=== PATIENT | male | born 1985 | race Caucasian/White ===

== ENCOUNTER 2016-09-25 10:59 | Inpatient (IN) | payer OTHER ==
[~2016-09-25] VITALS: Ht 165.1 cm; Wt 73.7 kg
[2016-09-25] MEDS ORDERED: RAW PROBIOTIC PO (11:29)
[2016-09-25] MEDS ORDERED: ADRENAL SUPPORT PO (11:29)
[2016-09-25] MEDS ORDERED: [UNRECOGNIZED DRUG - OTHER] PO (11:29)
[2016-09-25] MEDS ORDERED: CALC-214 PO (11:29)
[2016-09-25] MEDS ORDERED: SUPER ENZYMES PO (11:29)
[2016-09-25 11:43] LABS: URINE APPEARANCE CLEAR (CLEAR); URINE BILIRUBIN NEG (NEG); URINE COLOR YELLOW; URINE NITRITE NEG (NEG); UROBILINOGEN NEG (NEG); ZZUR CULT IF INDIC CLEAN CATCH NO
[2016-09-25 11:52] LABS: MANUAL MICROSCOPIC REQUIRED? NO; REVIEW REQ? NO
[2016-09-25 12:15] LABS: BENZODIAZEPINE, URINE NEG (NEG); COCAINE,URINE NEG (NEG); PHENCYCLIDINE, URINE NEG (NEG)
[2016-09-25 12:26] LABS: HEMATOCRIT 50.5 % (42-52); MEAN CELL VOLUME 84.7 fL (80-100); MEAN CORPUSCULAR HEMOGLOBIN 31.4 pg (25-34); MEAN PLATELET VOLUME 9.7 fL (7.4-10.4); PLATELET COUNT 211 K/uL (130-400); RED BLOOD COUNT 5.96 M/uL (4.7-6.1); WHITE BLOOD COUNT 7.66 K/uL (4.8-10.8)
[2016-09-25 12:35] LABS: BUN/CREATININE RATIO 14.4 (10-20); CREATININE 0.87 mg/dl (0.60-1.40)
[2016-09-25 12:46] LABS: ALB/GLOB RATIO 1.3 (0.9-2); THYROID STIMULATING HORMONE 1.68 uIu/ml (0.300-4.500)
[2016-09-25 12:47] LABS: ACETAMINOPHEN < 2 ug/ml (10-30)
[2016-09-25 12:53] LABS: COMPLETE YES; GIANT PLATELETS 1+; LYMPH ABS # 0.77 K/uL (1.2-3.4); VARIANT LYM ABS # 0.92 K/uL
[2016-09-25] MEDS ORDERED: HALOPERIDOL 5 MG TAB PO PRN (20:15)
[2016-09-25] MEDS ORDERED: ALUMINUM/MAGNESIUM SUSP 30 ML UDC PO PRN (20:15)
[2016-09-25] MEDS ORDERED: MAGNESIUM HYDROXIDE SUSP 30 ML UDC PO PRN (20:15)
[2016-09-25] MEDS ORDERED: hydrOXYzine HCL 25 MG TAB PO PRN ×2 (20:15)
[2016-09-25] MEDS ORDERED: ACETAMINOPHEN 325 MG TAB PO PRN (20:15)
[2016-09-25] MEDS ORDERED: SODIUM CHLORIDE 0.65% NA SOLN 45 ML (OCEAN) PRN (20:15)
[2016-09-25] MEDS ORDERED: BISMUTH SUBSALICYLATE PER ML OMNICELL CHARGE PO PRN (20:15)
--- NOTE | 2016-09-25 20:45 | EMERGENCY ROOM VISIT NOTE ---
ED Visit Note First contact with patient: 20:44 I received this patient at change of shift signout from Dr. Schwartz. Please see his note for complete history and physical. The patient was medically cleared earlier. There was a bed search underway. We are unable to ensure patient follow-up and it was felt that the patient may require inpatient management for his current mental health condition. Ultimately the patient was accepted by [address] [place] [address] for inpatient management.
[2016-09-25 21:11] VITALS: O2SAT 99
[2016-09-25 22:15] VITALS: BP 119/80; PULSE 76; TEMP 36.9; Ht 165.1 cm; Wt 73.7 kg
[2016-09-26 06:55] VITALS: BP_SYST 105; BP_SYST 126; BP_DIAS 66; BP_DIAS 82; PULSE 74; PULSE 77; TEMP 36.6
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
[2016-09-27 07:01] VITALS: BP_SYST 115; BP_SYST 135; BP_DIAS 72; BP_DIAS 90; PULSE 80; PULSE 81; TEMP 36.6
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
[2016-09-27] MEDS ORDERED: CEROVITE ADV FORMULA TAB PO ONE (11:20)
[2016-09-27] MEDS ORDERED: NON-FORMULARY MEDICATION SCH (11:30)
[2016-09-27] MEDS: B COMPLEX PO SCH (14:00)
[2016-09-27] MEDS: PROBIOTIC PO SCH (14:00)
[2016-09-27] MEDS: VIT C PO SCH (14:00)
[2016-09-27] MEDS: CYANOCOBALAMIN SL SCH (14:00)
[2016-09-27] MEDS: FOLIC ACID PO SCH (14:00)
[2016-09-27] MEDS ORDERED: QUETIAPINE FUMARATE 25 MG TAB PO SCH (22:00)
[2016-09-28 06:48] VITALS: BP_SYST 114; BP_SYST 120; BP_DIAS 74; BP_DIAS 82; PULSE 67; PULSE 85; TEMP 36.3
[2016-09-28 08:20] LABS: CHOLESTEROL/HDL RATIO 5.8
[2016-09-28] MEDS: FOLIC ACID PO SCH (08:57)
[2016-09-28] MEDS: VIT C PO SCH (08:57)
[2016-09-28] MEDS: B COMPLEX PO SCH (08:57)
[2016-09-28] MEDS: CEROVITE ADV FORMULA TAB PO SCH (08:57)
[2016-09-28] MEDS: CYANOCOBALAMIN SL SCH (08:58)
[2016-09-28] MEDS: PROBIOTIC PO SCH (08:58)
--- NOTE | 2016-09-28 09:53 | Psychiatric Progress Notes ---
Progress Note Date of Service Sep 28, 2016. Interval History Aldo Mathew, who goes by Taco, is a 31-year-old but recently white male from [place], [place] who has a history of PTSD, bipolar and psychosis and presented on referral from his outpatient psychiatric PA, Lo Myers, at [facility] after he presented for an initial evaluation and was noted to be psychotic and disorganized to the point that his did not feel safe with him and had moved out with their [id number] daughter. He was admitted voluntarily. Chief Complaint "Pretty good, just a little tired". Subjective Patient was seen & assessed interval progress reviewed with Treatment Team. Staff report he is going to groups, is appropriate at times, but other times thoughts are disorganized and do not make sense. Odd affect, appears guarded at times. He got his first dose of Seroquel 50mg last night, and says it helped with sleep, but he feels a little tired this morning. His mood is "pretty good, " and he denies mood swings. He thinks his mood is better due to being away from stressors, such as work and his family. He notes mornings are usually the most stressful time of day for him, as it is hard for him to get up and get ready for work. He also feels "stressed" due to worrying about his uncle who has Parkinson's, and his mother and , as he says they are "not going real well," although he struggles to further describe this. He thinks groups are helping him to "know my limitations, taking time for myself." He says his therapist, Dr. Christina in [place], had put him on FMLA leave from work, although he tried to return last week, but then left again after his told him she was filing for custody of their daughter. He is not sure when he will return to work, and hasn't spoken to his boss. When asked about any other concerns he has about his treatment or symptoms, he says "my needs some way to stabilize her mood," and starts talking about her menstrual cycles being irregular. He was redirected to his own symptoms and treatment, and says he wants to know "what the process will be when I'm discharged, will I go back to my and daughter?" He still is not able to explain why he has seen two different therapists, and is not sure who he will see after discharge, talking about maybe going to see a therapist at the [place] because "they have different ideas about things, if you have a male therapist they say one thing, but a woman therapist says something else." Sleep Information Total Hours of Sleep: 6.50 Meal Information Percent of Breakfast Consumed: 95 Percent of Lunch Consumed: 100 Percent of Dinner Consumed: 100 Mental Status Exam During interview pt is: alert and oriented, cooperative Appearance: appropriately dressed, appropriately groomed Eye contact is: good Motor behavior is: steady gait & station, no abnormal motor movements Speech: normal in rate, rhythm & volume Affect: blunted Mood is: other ("pretty good, just tired.") Thought process: tangential, looseness of associations, other (disorganized at times, answering with unrelated information) Thought content: paranoid, cognitive distortions Suicidal thought are: denied Homicidal thoughts are: denied Hallucinations: denies auditory Cognition: language grossly intact, other (attention impaired) Intelligence estimated to be: average Insight: impaired Judgement: impaired Medication Trials (1) Past Psych Meds Risperdal started 08/2015 hospitalization, which he stopped on his own shortly afterwards due to lethargy. He was prescribed Abilify in December 2015 from the [facility], which he took for several weeks before he stopped because I did not like it, could go financially crazy, men can grow breasts, it wipes you out, I could not do anything. Brief trial of Celexa in September 2015, which he thought caused racing thoughts. He is not sure if he was tried on any other medications during his hospitalization, saying they drugged me up. Last Edited By: Marissa Felipe on Sep 27, 2016 08:25 Impression Aldo Mathew, who goes by Taco, is a 31-year-old white male with a history of bipolar disorder and possibly posttraumatic stress disorder as well as noncompliance with treatment, who presents on referral from his outpatient psychiatric PA after his initial assessment due to disorganization, inability to care for himself, and risk of harm to both himself and his and young daughter who have recently moved out as his is afraid of him due to his symptoms and aggressive behavior. He has been chronically noncompliant with psychiatric treatment and is paranoid and resistant to the suggestion of medications. It is unclear if his primary diagnosis is a primary thought disorder or a psychotic mood disorder, and although one therapist he saw thought he had posttraumatic stress disorder, he denies symptoms here. It will be helpful to get records from his hospitalization at [facility] about a year ago and to get collateral from his to try to clarify diagnosis. I agree with the last several psychiatric assessments he has had, all of which recommended an antipsychotic medication, as he is quite disorganized and paranoid; however, he initially declined, although after extensive discussion, agreed to a trial of quetiapine, which was started 09/27. DIAGNOSES: 1. Psychosis not otherwise specified (rule out psychotic mood disorder versus primary thought disorder). 2. History of bipolar disorder per patient. 3. Rule out posttraumatic stress disorder. 4. Noncompliance with treatment. RISK ASSESSMENT: Risk factors include race, sex, from and daughter, psychotic symptoms, mood symptoms, previous psychiatric diagnosis and treatment, noncompliance with treatment, inability to function or care for himself, missing work and requiring help with ADLs. Protective factors include no history of suicide attempts, denies suicidal ideation currently, denies access to guns, responsible for a young child, is employed, no family history of suicide. Plan (1) Psychotic disorder 09/26 - Psychosis not otherwise specified: Discussed the concerns about his psychotic symptoms and the recommendations to take an antipsychotic medication. The patient is unwilling to do this today. I advised him that I would be willing to order any antipsychotic he was willing to take, although I think he would benefit from a more potent antipsychotic. He is very concerned about side effects and would likely complain about sedation from haloperidol or olanzapine. Could consider a trial of ziprasidone or quetiapine. For now, as he is refusing all of these, I will order Haldol 5 mg q. 4 hours p.r.n. psychosis or agitation. We will need to continue to collect collateral information and records to clarify his diagnosis as he is a very poor historian. - He is willing to sign a release for [facility] and we will request records from his last hospitalization. - Recommend he avoid herbals as they are not regulated, so it is not known what chemical substances are in the pills he is taking, and as his symptoms continue to be severe, it does not appear that they are helping. - We will need to coordinate with his outpatient providers including his psychiatric PA, Lo Myers, his therapist, and PCP. 09/27 - After much discussion, patient willing for trial of quetiapine. Reviewed risks, benefits, and side effects. Will start 50mg qhs tonight, and titrate upwards as tolerated. - Family meeting with tomorrow. - [facility] - Patient states he had a brain MRI this past spring which was normal. - Order fasting labs for tomorrow. - Re-order probiotic, vit B6 and B complex, and D at his request- patient has home supply. 09/28 - Tolerating quetiapine well with mild AM sedation. Will continue dose titration to goal starting dose of 200mg qhs. Again reviewed side effects with patient, and offered to print out a patient handout on the medication, but he declined, stating he didn't want to focus on the potential side effects and understood per our discussion what they were. - Family meeting with today. (2) Safety 09/26 - Q. 15 minute checks for safety. - Family meeting with , and recommend he not have access to guns. - The patient should not drive until his psychotic symptoms have resolved and he has stabilized. - He should attend groups and work on healthy coping skills and a discharge safety plan. - Recommend he not be alone with his young daughter until symptoms have stabilized. (3) Noncompliance Continue to educate about his mental illness, recommended treatment, and risks of refusing treatment. (4) Hypertriglyceridemia 09/28 - TG borderline high (158). Reviewed results with patient, and need to continue monitoring and follow up with PCP. Send records to Dr. Salinas. Discharge / Aftercare Planning Primary Care Physician: Name: Onesimo Salinas PA-C Psychiatrist: Name: Annie Therapist: Name: Dr Sj Christina Date of Appointment: Sep 29, 2016 Visit Code E&M Code: 79665 Data Vital Signs Last 24 Hrs: Date Time Temp Pulse Resp B/P Pulse Ox O2 Delivery O2 Flow Rate FiO2 09/28/16 06:48 36.3 67 16 114/74 85 120/82 Meds Administered Last 24 Hrs: Meds Administered (Past 24Hrs) Medications (Trade) Dose Ordered Sig/Carolyn Route Start Time Stop Time Status Last Admin Dose Admin Multivitamins/ Minerals (Multivitamin W/ Minerals Tab) 1 tab QAM PO 09/28/16 09:00 10/28/16 08:59 09/28/16 08:57 1 TAB Multivitamins/ Minerals (Multivitamin W/ Minerals Tab) 1 tab 1120 ONCE PO 09/27/16 11:20 09/27/16 11:44 DC 09/27/16 12:25 1 TAB Quetiapine Fumarate (seroQUEL TAB) 50 mg HS PO 09/27/16 22:00 09/28/16 09:46 DC 09/27/16 22:08 50 MG Non-Formulary Medication (Non-Formulary Patient'S Own Med) 1 ea DAILY PO 09/27/16 14:00 10/27/16 13:59 09/28/16 08:57 1 EA Non-Formulary Medication (Non-Formulary Patient'S Own Med) 1 ea DAILY PO 09/27/16 14:00 10/27/16 13:59 09/28/16 08:58 1 EA Non-Formulary Medication (Non-Formulary Patient'S Own Med) 1 ea DAILY SL 09/27/16 14:00 10/27/16 13:59 09/28/16 08:58 1 EA Lab Results Last 24 Hrs: Last 24 Hours Test 09/28/16 07:25 Fasting Glucose 84 mg/dl Triglycerides Level 158 mg/dl Cholesterol Level 152 mg/dl HDL Cholesterol 26 mg/dl LDL Cholesterol, Calculated 94 mg/dl VLDL Cholesterol, Calculated 32 mg/dl Cholesterol/HDL Ratio 5.8
[2016-09-28] MEDS ORDERED: QUETIAPINE FUMARATE 100 MG TAB PO SCH (22:00)
[2016-09-29 06:47] VITALS: BP_SYST 109; BP_SYST 121; BP_DIAS 68; BP_DIAS 74; PULSE 69; PULSE 87; TEMP 36.5
[2016-09-29] MEDS: B COMPLEX PO SCH (09:10)
[2016-09-29] MEDS: FOLIC ACID PO SCH (09:10)
[2016-09-29] MEDS: CEROVITE ADV FORMULA TAB PO SCH (09:10)
[2016-09-29] MEDS: PROBIOTIC PO SCH (09:10)
[2016-09-29] MEDS: VIT C PO SCH (09:10)
[2016-09-29] MEDS: CYANOCOBALAMIN SL SCH (09:13)
--- NOTE | 2016-09-29 12:34 | Psychiatric Progress Notes ---
Progress Note Date of Service Sep 29, 2016. Interval History Aldo Mathew, who goes by Taco, is a 31-year-old but recently white male from [place], [place] who has a history of PTSD, bipolar and psychosis and presented on referral from his outpatient psychiatric PA, Lo Myers, at [place] after he presented for an initial evaluation and was noted to be psychotic and disorganized to the point that his did not feel safe with him and had moved out with their [id number] daughter. He was admitted voluntarily. Chief Complaint "Okay". Subjective Patient was seen & assessed interval progress reviewed with Treatment Team. Staff report he had a difficult meeting with his , as she told him she doesn 't want him to be with their daughter unsupervised. Per social work notes, he had a monolog about having a yeast infection, needing oxygen, having kidney stones and being constipated, which he tied to being unable to get outside today. It was attempted to figure out how these complaints seemed to be tied back to pt' s lack of medication compliance. Patient said that his family supports his use of vitamins for dealing with mental issues but his said she is supportive of patient staying on medication. His said that they are presently because she is worried about pt being alone w their 21 month old daughter. A great deal of mtg was spent in processing this and eventually pt signed an emergency custody agreement saying that he was willing to be around their daughter only w supervision until he was able to stabilize his mental health issues. Patient also spoke of his providers Lo Myers ([facility]) and Dr. Christina for therapy and said that he felt supported by them. In addition both agreed to return to their [facility] for marital counseling w the efforts to work on marriage and co parent their toddler. Pt said he is willing to return to living at his home alone, knowing he can see his daughter a great deal - with supervision. His confirmed that pt does not have access to a gun at home. Pt said he would feel more supported if his were to step down from her managerial job, but she said she is unable to do this as she is the primary financial support for the family. Both said that their marriage and the safety of the daughter are their most important considerations. Pt seemed to be basically organized and focused for the family meeting, but tangential at times. Today he states his sleep continues to improve, and although he has some "grogginess" when he wakes up, it is tolerable. He is concerned about "how high will the medication go," as he is worried about being "too groggy." He denies other side effects, saying he had "heavy chest, pain, felt my heart beating more " on other medications. He also wanted to know if he could exercise on the medication, saying he wasn't able to on others. He reports good appetite, and says the groups have been "insightful, good, learning from other people too." Per staff he is participating in groups more, and met with one of the counselors 1:1. Sleep Information Total Hours of Sleep: 6.50 Meal Information Percent of Breakfast Consumed: 100 Percent of Lunch Consumed: 100 Percent of Dinner Consumed: 90 Mental Status Exam During interview pt is: alert and oriented, cooperative Appearance: appropriately dressed, appropriately groomed Eye contact is: good Motor behavior is: steady gait & station, no abnormal motor movements Speech: normal in rate, rhythm & volume Affect: blunted Mood is: other ("good") Thought process: tangential, looseness of associations, other (disorganized at times, but improved from admission) Thought content: paranoid, cognitive distortions Suicidal thought are: denied Homicidal thoughts are: denied Hallucinations: denies auditory Cognition: language grossly intact, other (attention impaired) Intelligence estimated to be: average Insight: impaired Judgement: impaired Medication Trials (1) Past Psych Meds Risperdal started 08/2015 hospitalization, which he stopped on his own shortly afterwards due to lethargy. He was prescribed Abilify in December 2015 from the [facility], which he took for several weeks before he stopped because I did not like it, could go financially crazy, men can grow breasts, it wipes you out, I could not do anything. Brief trial of Celexa in September 2015, which he thought caused racing thoughts. He is not sure if he was tried on any other medications during his hospitalization, saying they drugged me up. Last Edited By: Marissa Felipe on Sep 27, 2016 08:25 Impression Aldo Mathew, who goes by Taco, is a 31-year-old white male with a history of bipolar disorder and possibly posttraumatic stress disorder as well as noncompliance with treatment, who presents on referral from his outpatient psychiatric PA after his initial assessment due to disorganization, inability to care for himself, and risk of harm to both himself and his and young daughter who have recently moved out as his is afraid of him due to his symptoms and aggressive behavior. He has been chronically noncompliant with psychiatric treatment and is paranoid and resistant to the suggestion of medications. It is unclear if his primary diagnosis is a primary thought disorder or a psychotic mood disorder, and although one therapist he saw thought he had posttraumatic stress disorder, he denies symptoms here. It will be helpful to get records from his hospitalization at [facility] about a year ago and to get collateral from his to try to clarify diagnosis. I agree with the last several psychiatric assessments he has had, all of which recommended an antipsychotic medication, as he is quite disorganized and paranoid; however, he initially declined, although after extensive discussion, agreed to a trial of quetiapine, which was started 09/27. DIAGNOSES: 1. Psychosis not otherwise specified (rule out psychotic mood disorder versus primary thought disorder). 2. History of bipolar disorder per patient. 3. Posttraumatic stress disorder, by history. 4. Noncompliance with treatment. RISK ASSESSMENT: Risk factors include race, sex, from and daughter, psychotic symptoms, mood symptoms, previous psychiatric diagnosis and treatment, noncompliance with treatment, inability to function or care for himself, missing work and requiring help with ADLs. Protective factors include no history of suicide attempts, denies suicidal ideation currently, denies access to guns, responsible for a young child, is employed, no family history of suicide. Plan (1) Psychotic disorder 09/26 - Psychosis not otherwise specified: Discussed the concerns about his psychotic symptoms and the recommendations to take an antipsychotic medication. The patient is unwilling to do this today. I advised him that I would be willing to order any antipsychotic he was willing to take, although I think he would benefit from a more potent antipsychotic. He is very concerned about side effects and would likely complain about sedation from haloperidol or olanzapine. Could consider a trial of ziprasidone or quetiapine. For now, as he is refusing all of these, I will order Haldol 5 mg q. 4 hours p.r.n. psychosis or agitation. We will need to continue to collect collateral information and records to clarify his diagnosis as he is a very poor historian. - He is willing to sign a release for Linwood Tapia and we will request records from his last hospitalization. - Recommend he avoid herbals as they are not regulated, so it is not known what chemical substances are in the pills he is taking, and as his symptoms continue to be severe, it does not appear that they are helping. - We will need to coordinate with his outpatient providers including his psychiatric PA, Lo Myers, his therapist, and PCP. 09/27 - After much discussion, patient willing for trial of quetiapine. Reviewed risks, benefits, and side effects. Will start 50mg qhs tonight, and titrate upwards as tolerated. - Family meeting with tomorrow. - [facility] - Patient states he had a brain MRI this past spring which was normal. - Order fasting labs for tomorrow. - Re-order probiotic, vit B6 and B complex, and D at his request- patient has home supply. 09/28 - Tolerating quetiapine well with mild AM sedation. Will continue dose titration to goal starting dose of 200mg qhs. Again reviewed side effects with patient, and offered to print out a patient handout on the medication, but he declined, stating he didn't want to focus on the potential side effects and understood per our discussion what they were. - Family meeting with today. 09/29 - Increase quetiapine to 150mg qhs, tolerating well. - Family meeting with went well, patient agreed to sign custody agreement that he will only have supervised visits with his daughter until he is stabilized. (2) Safety 09/26 - Q. 15 minute checks for safety. - Family meeting with . She confirmed he does not have access to guns. - The patient should not drive until his psychotic symptoms have resolved and he has stabilized. - He should attend groups and work on healthy coping skills and a discharge safety plan. - Recommend he not be alone with his young daughter until symptoms have stabilized. (3) Noncompliance Continue to educate about his mental illness, recommended treatment, and risks of refusing treatment. (4) Hypertriglyceridemia 09/28 - TG borderline high (158). Reviewed results with patient, and need to continue monitoring and follow up with PCP. Send records to Dr. Salinas. Discharge / Aftercare Planning Primary Care Physician: Name: Onesimo Salinas PA-C Psychiatrist: Name: Annie Therapist: Name: Dr Sj Christina Date of Appointment: Sep 29, 2016 Visit Code E&M Code: 24636 Data Vital Signs Last 24 Hrs: Date Time Temp Pulse Resp B/P Pulse Ox O2 Delivery O2 Flow Rate FiO2 09/29/16 06:47 36.5 69 16 109/68 87 121/74 Meds Administered Last 24 Hrs: Meds Administered (Past 24Hrs) Medications (Trade) Dose Ordered Sig/Carolyn Route Start Time Stop Time Status Last Admin Dose Admin Multivitamins/ Minerals (Multivitamin W/ Minerals Tab) 1 tab QAM PO 09/28/16 09:00 10/28/16 08:59 09/29/16 09:10 1 TAB Quetiapine Fumarate (seroQUEL TAB) 50 mg HS PO 09/27/16 22:00 09/28/16 09:46 DC 09/27/16 22:08 50 MG Non-Formulary Medication (Non-Formulary Patient'S Own Med) 1 ea DAILY PO 09/27/16 14:00 10/27/16 13:59 09/29/16 09:10 1 EA Non-Formulary Medication (Non-Formulary Patient'S Own Med) 1 ea DAILY PO 09/27/16 14:00 10/27/16 13:59 09/29/16 09:10 1 EA Non-Formulary Medication (Non-Formulary Patient'S Own Med) 1 ea DAILY SL 09/27/16 14:00 10/27/16 13:59 09/29/16 09:13 1 EA Quetiapine Fumarate (seroQUEL TAB) 100 mg HS PO 09/28/16 22:00 10/28/16 21:59 09/28/16 21:47 100 MG
[2016-09-29] MEDS ORDERED: QUETIAPINE FUMARATE 100 MG TAB PO SCH (22:00)
[2016-09-29 23:33] LABS: SYNTHETIC CANNABINOIDS QL URIN NEGATIVE (Negative)
[2016-09-30 06:44] VITALS: BP_SYST 118; BP_SYST 131; BP_DIAS 72; BP_DIAS 86; PULSE 69; PULSE 98; TEMP 36.5
[2016-09-30] MEDS: FOLIC ACID PO SCH (08:31)
[2016-09-30] MEDS: B COMPLEX PO SCH (08:31)
[2016-09-30] MEDS: CEROVITE ADV FORMULA TAB PO SCH (08:31)
[2016-09-30] MEDS: VIT C PO SCH (08:31)
[2016-09-30] MEDS: PROBIOTIC PO SCH (08:32)
[2016-09-30] MEDS: CYANOCOBALAMIN SL SCH (08:32)
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
[2016-09-30] MEDS ORDERED: NAPROXEN 250 MG TAB PO PRN (13:30)
[2016-09-30 21:49] VITALS: BP 151/98; PULSE 73
[2016-09-30 22:11] VITALS: BP 151/100; PULSE 73
[2016-09-30] MEDS: QUETIAPINE FUMARATE 200 MG TAB PO SCH (22:33)
[2016-10-01 06:51] VITALS: BP_SYST 125; BP_SYST 133; BP_DIAS 77; BP_DIAS 85; PULSE 102; PULSE 73; TEMP 36.5
[2016-10-01] MEDS: CEROVITE ADV FORMULA TAB PO SCH (08:47)
[2016-10-01] MEDS: PROBIOTIC PO SCH (08:48)
[2016-10-01] MEDS: B COMPLEX PO SCH (08:48)
[2016-10-01] MEDS: CYANOCOBALAMIN SL SCH (08:48)
[2016-10-01] MEDS: VIT C PO SCH (08:48)
[2016-10-01] MEDS: FOLIC ACID PO SCH (08:48)
--- NOTE | 2016-10-01 09:33 | Psychiatric Progress Notes ---
Progress Note Date of Service Oct 01, 2016. Interval History Aldo Mathew, who goes by Taco, is a 31-year-old but recently white male from [place], [place] who has a history of PTSD, bipolar and psychosis and presented on referral from his outpatient psychiatric PA, Lo Myers, at [place] after he presented for an initial evaluation and was noted to be psychotic and disorganized to the point that his did not feel safe with him and had moved out with their [id number] daughter. He was admitted voluntarily. Chief Complaint "Better". Subjective Patient reported a headache and neck pain yesterday, but it improved with Ibuprofen, and is resolved today. He reports mild constipation, had a BM today but was less than usual. Is eating and drinking well. Sleep and appetite are good. Sleep is improved from admission, and he feels more rested, with improved focus. Mood is "probably a 6 or a 7, pretty good." He is interacting more with others. He has spoken to his on the phone, and they have agreed to continue living separately, and he will see his daughter only with supervision. His mom is coming to visit [facility] and he is worried as she is against medications and has encouraged him not take them, and also thinks she will have a lot of questions and hopes staff will be available if needed to help him answer them. Sleep Information Total Hours of Sleep: 6.00 Meal Information Percent of Breakfast Consumed: 100 Percent of Lunch Consumed: 100 Percent of Dinner Consumed: 75 Mental Status Exam During interview pt is: alert and oriented, cooperative Appearance: appropriately dressed, appropriately groomed Eye contact is: poor (averted gaze with only brief eye contact) Motor behavior is: steady gait & station, no abnormal motor movements Speech: normal in rate, rhythm & volume Affect: blunted (brief smiling) Mood is: other ("good") Thought process: goal directed, other (very mild loosening of associations at times, with seemingly unconnected statements, that he is ) Thought content: cognitive distortions Suicidal thought are: denied Homicidal thoughts are: denied Hallucinations: denies auditory Cognition: memory grossly intact, attention grossly intact, language grossly intact Intelligence estimated to be: average Insight: fair Judgement: fair Medication Trials (1) Past Psych Meds Risperdal started 08/2015 hospitalization, which he stopped on his own shortly afterwards due to lethargy. He was prescribed Abilify in December 2015 from the [facility], which he took for several weeks before he stopped because I did not like it, could go financially crazy, men can grow breasts, it wipes you out, I could not do anything. Brief trial of Celexa in September 2015, which he thought caused racing thoughts. He is not sure if he was tried on any other medications during his hospitalization, saying they drugged me up. Last Edited By: Marissa Felipe on Sep 27, 2016 08:25 Impression The patient is somatically focused today thinking that Seroquel in causing him head pain. Encouraged him to take tylenol and we will observe the pattern. He appears to be more organized today, conversations for the most part is coherent. has not visited for several days and would like her estimation of how close to baseline he is at this time. We will continue to titrate the Seroquel and increase to 200 mg. tonight, which is our goal. Continued Inpatient Care the patient requires inpatient care due to the severity of his condition and inability to manipulate information in a reality based manner. Plan (1) Psychotic disorder 09/26 - Psychosis not otherwise specified: Discussed the concerns about his psychotic symptoms and the recommendations to take an antipsychotic medication. The patient is unwilling to do this today. I advised him that I would be willing to order any antipsychotic he was willing to take, although I think he would benefit from a more potent antipsychotic. He is very concerned about side effects and would likely complain about sedation from haloperidol or olanzapine. Could consider a trial of ziprasidone or quetiapine. For now, as he is refusing all of these, I will order Haldol 5 mg q. 4 hours p.r.n. psychosis or agitation. We will need to continue to collect collateral information and records to clarify his diagnosis as he is a very poor historian. - He is willing to sign a release for [facility] and we will request records from his last hospitalization. - Recommend he avoid herbals as they are not regulated, so it is not known what chemical substances are in the pills he is taking, and as his symptoms continue to be severe, it does not appear that they are helping. - We will need to coordinate with his outpatient providers including his psychiatric PA, Lo Myers, his therapist, and PCP. 09/27 - After much discussion, patient willing for trial of quetiapine. Reviewed risks, benefits, and side effects. Will start 50mg qhs tonight, and titrate upwards as tolerated. - Family meeting with tomorrow. - [facility] - Patient states he had a brain MRI this past spring which was normal. - Order fasting labs for tomorrow. - Re-order probiotic, vit B6 and B complex, and D at his request- patient has home supply. 09/28 - Tolerating quetiapine well with mild AM sedation. Will continue dose titration to goal starting dose of 200mg qhs. Again reviewed side effects with patient, and offered to print out a patient handout on the medication, but he declined, stating he didn't want to focus on the potential side effects and understood per our discussion what they were. - Family meeting with today. 09/29 - Increase quetiapine to 150mg qhs, tolerating well. - Family meeting with went well, patient agreed to sign custody agreement that he will only have supervised visits with his daughter until he is stabilized. 09/30 - Increase Seroquel to 200 mg. HS - Observe pattern of AMADO which patient is concerned is related to the medication 10/01 - AMADO resolved, continue Seroquel, denies other side effects. - Discussed possible return to work date, patient thinks he cold be ready to go back by mid-week next week. If his outpatient provider cannot see him before then, can issue return to work letter at discharge as he is much improved (2) Safety 09/26 - Q. 15 minute checks for safety. - Family meeting with . She confirmed he does not have access to guns. - The patient should not drive until his psychotic symptoms have resolved and he has stabilized. - He should attend groups and work on healthy coping skills and a discharge safety plan. - Recommend he not be alone with his young daughter until symptoms have stabilized. - He signed agreement for supervised visits with (3) Noncompliance Continue to educate about his mental illness, recommended treatment, and risks of refusing treatment. (4) Hypertriglyceridemia 09/28 - TG borderline high (158). Reviewed results with patient, and need to continue monitoring and follow up with PCP. Send records to Dr. Salinas. Discharge / Aftercare Planning Primary Care Physician: Name: Onesimo Salinas PA-C Psychiatrist: Name: Annie Therapist: Name: Dr Sj Christina Date of Appointment: Sep 29, 2016 Visit Code E&M Code: 55416 Risk Factors Assessment Male: Yes : Yes /single/: Yes Higher / Fall in social status: No Health problems: No Mental Health Diagnoses: Yes Substance use disorders: No Previous psychiatric stay: Yes Protective Factors Assessment : Yes Responsible for young children: Yes Employed: No Stable relationships: No Supportive family: Yes Data Vital Signs Last 24 Hrs: Date Time Temp Pulse Resp B/P Pulse Ox O2 Delivery O2 Flow Rate FiO2 10/01/16 06:51 36.5 73 16 125/77 102 133/85 09/30/16 22:11 73 151/100 09/30/16 21:49 73 151/98 Meds Administered Last 24 Hrs: Meds Administered (Past 24Hrs) Medications (Trade) Dose Ordered Sig/Carolyn Route Start Time Stop Time Status Last Admin Dose Admin Quetiapine Fumarate (seroQUEL TAB) 150 mg HS PO 09/29/16 22:00 09/30/16 13:09 DC 09/29/16 22:35 150 MG Quetiapine Fumarate (seroQUEL TAB) 200 mg HS PO 09/30/16 22:00 10/30/16 21:59 09/30/16 22:33 200 MG Naproxen (Naprosyn Tab) 250 mg BID PRN PO 09/30/16 13:30 10/30/16 13:29 09/30/16 14:15 250 MG Problem Qualifiers (1) Psychotic disorder: Psychosis type: unspecified psychosis type Qualified Codes: F29 - Unspecified psychosis not due to a substance or known physiological condition
[2016-10-01] MEDS: QUETIAPINE FUMARATE 200 MG TAB PO SCH (21:55)
[2016-10-02 07:00] VITALS: BP_SYST 109; BP_SYST 125; BP_DIAS 71; BP_DIAS 86; PULSE 101; PULSE 91; TEMP 36.5
[2016-10-02] MEDS: CYANOCOBALAMIN SL SCH ×2 (09:00→09:12)
[2016-10-02] MEDS: CEROVITE ADV FORMULA TAB PO SCH (09:11)
[2016-10-02] MEDS: B COMPLEX PO SCH (09:12)
[2016-10-02] MEDS: VIT C PO SCH (09:12)
[2016-10-02] MEDS: PROBIOTIC PO SCH (09:12)
[2016-10-02] MEDS: FOLIC ACID PO SCH (09:12)
[2016-10-02] MEDS ORDERED: SRQ200 PO (09:56)
--- NOTE | 2016-10-02 10:06 | Discharge Instructions ---
Discharge Information Report Includes Report will include the: Discharge Instructions & Summary Admission Admission Date / Time: Sep 25, 2016 at 20:12 Reason for Admission: Psychosis Discharge Discharge Diagnosis / Problem: unspecified psychosis Condition at Discharge: Fair Discharge Goals Goal(s): Decrease discomfort, Improve disease control, Prevent Disease Progression Activity Recommendations Activity Limitations: resume your previous activity . Instructions / Follow-Up Instructions / Follow-Up . SPECIAL CARE INSTRUCTIONS: 1. Follow through with your scheduled aftercare appointments. If unable to keep an appointment, please call to reschedule. 2. Take your medication only as prescribed. Medication should not be changed or stopped without the approval of your doctor. In the event of worsening symptoms or concerns about side effects, contact your doctor immediately. 3. Utilize new healthy coping skills, anger management skills, and stress management skills learned during your hospitalization. Journal feelings and process them with a support person. Identify stressors or situations that may result in relapse, deterioration or inappropriate behaviors and develop a plan to deal with those issues. 4. If your coping skills are ineffective and you are in crisis, contact your outpatient providers for direction. If unable to reach your providers, please call the CAN HELP LINE AT or go to the closest Emergency Room. 5. Avoid alcohol and un-prescribed drugs. 6. You have been provided with the Mental Health Advance Directives Pamphlet for your review. AFTERCARE APPOINTMENTS: * Please call your insurance company prior to your scheduled appointment to confirm your aftercare providers are covered. Take your insurance information to your appointments. . Discharge / Aftercare Planning Primary Care Physician: Name: Aldo Salinas PA-C Psychiatrist: Name: Annie Myers Phone Number: Date of Appointment: Oct 06, 2016 Time of Appointment: 9:45 a.m. Therapist: Name Of Therapist: Dr Sj Christina Date of Appointment: Oct 06, 2016 Time of Appointment: 7:00 a.m. Appointment Comments: (there is enough time for both apts) . Follow-Up Care Plan for Follow-Up Care: The patient will have prompt follow up with his psychiatric providers on . Current Hospital Diet Patient's current hospital diet: Regular Diet Discharge Diet Recommended Diet: Regular Diet Procedures Procedures Performed: No Pending Studies Pending Studies at Discharge: No Medical Emergencies . Who to Call and When: Medical Emergencies: For questions or emergencies related to your hospital stay, please contact the Inpatient Behavioral Health Unit at [phone]. A neuropsychiatric aide is on-call 05/04 for the Behavioral Health Unit for emergencies At any time you feel your situation is an emergency, you may also call 911 immediately. . Non-Emergent Contact Non-Emergency issues call your: Primary Care Provider, Psychiatrist, Therapist Advance Directives Existing Advance Directive: No Do You Have an Existing Mental: No Existing Living Will: No Existing Power of Fuel Manager: No Advance Directives Info Given: To Pt/S.O. Discharge Summary Admission HPI Per the Admitting provider: Please see attached H&P Hospital Course (1) Psychotic disorder 09/26 - Psychosis not otherwise specified: Discussed the concerns about his psychotic symptoms and the recommendations to take an antipsychotic medication. The patient is unwilling to do this today. I advised him that I would be willing to order any antipsychotic he was willing to take, although I think he would benefit from a more potent antipsychotic. He is very concerned about side effects and would likely complain about sedation from haloperidol or olanzapine. Could consider a trial of ziprasidone or quetiapine. For now, as he is refusing all of these, I will order Haldol 5 mg q. 4 hours p.r.n. psychosis or agitation. We will need to continue to collect collateral information and records to clarify his diagnosis as he is a very poor historian. - He is willing to sign a release for [facility] and we will request records from his last hospitalization. - Recommend he avoid herbals as they are not regulated, so it is not known what chemical substances are in the pills he is taking, and as his symptoms continue to be severe, it does not appear that they are helping. - We will need to coordinate with his outpatient providers including his psychiatric PA, Lo Myers, his therapist, and PCP. 09/27 - After much discussion, patient willing for trial of quetiapine. Reviewed risks, benefits, and side effects. Will start 50mg qhs tonight, and titrate upwards as tolerated. - Family meeting with tomorrow. - [facility] - Patient states he had a brain MRI this past spring which was normal. - Order fasting labs for tomorrow. - Re-order probiotic, vit B6 and B complex, and D at his request- patient has home supply. 09/28 - Tolerating quetiapine well with mild AM sedation. Will continue dose titration to goal starting dose of 200mg qhs. Again reviewed side effects with patient, and offered to print out a patient handout on the medication, but he declined, stating he didn't want to focus on the potential side effects and understood per our discussion what they were. - Family meeting with today. 09/29 - Increase quetiapine to 150mg qhs, tolerating well. - Family meeting with went well, patient agreed to sign custody agreement that he will only have supervised visits with his daughter until he is stabilized. 09/30 - Increase Seroquel to 200 mg. HS - Observe pattern of AMADO which patient is concerned is related to the medication 10/01 - AMADO resolved, continue Seroquel, denies other side effects. - Discussed possible return to work date, patient thinks he cold be ready to go back by mid-week next week. If his outpatient provider cannot see him before then, can issue return to work letter at discharge as he is much improved (2) Safety 09/26 - Q. 15 minute checks for safety. - Family meeting with . She confirmed he does not have access to guns. - The patient should not drive until his psychotic symptoms have resolved and he has stabilized. - He should attend groups and work on healthy coping skills and a discharge safety plan. - Recommend he not be alone with his young daughter until symptoms have stabilized. - He signed agreement for supervised visits with (3) Noncompliance Continue to educate about his mental illness, recommended treatment, and risks of refusing treatment. (4) Hypertriglyceridemia 09/28 - TG borderline high (158). Reviewed results with patient, and need to continue monitoring and follow up with PCP. Send records to Dr. Salinas. Risk Factors Assessment Male: Yes : Yes /single/: Yes Higher / Fall in social status: No Health problems: No Mental Health Diagnoses: Yes Substance use disorders: No Previous psychiatric stay: Yes Protective Factors Assessment : Yes Responsible for young children: Yes Employed: No Stable relationships: No Supportive family: Yes Day of Discharge Assessment COURSE OF HOSPITALIZATION: During the patient's 7 day stay, he was stabilized on Seroquel 200 mg at at bedtime. He was fairly somatically preoccupied throughout his hospitalization were side effects to his medication including having a pain in the left occipital area of his head and stiffness in his neck. These did not appear to be EPS but more worrying about side effects. There was no evidence of cogwheeling or restlessness. Upon admission, the patient was very disorganized in his thinking but this gradually improved for discharge. He was able to better communicate his thoughts. His had moved from their home, to her parents with their child due to concerns for the patient 's behavior. The patient is well aware of this and they did have a family meeting while here. The is requiring that the patient remain in treatment as a condition of her ever returning to their home. During his stay he participated in group programming and was frequently described as "disconnected " by staff. He denied any clear auditory or visual hallucinations but remained with somatic preoccupation. He had no suicidal ideation at any point during his hospitalization either. He had pre-existing providers, Lo WILSON at [facility] and Dr. Nicanor Christina for therapy with whom he will continue treatment upon discharge. Sleep, appetite and energy were good throughout his stay. In general his condition was much improved by time of discharge although he did remain as I said, with some somatic preoccupation. DAY OF DISCHARGE ASSESSMENT: Today the patient is requesting discharge. He continues to worry about complaints of head pain or neck stiffness that he feels may be related to medications. He is encouraged to continue on his medications, not adjusting his dosage until he is seen by Lo Myers. He has follow-up appointments on Wednesday of this coming week. Today he is casually and appropriately dressed and groomed. Gait and station are within normal limits. He periodically rubs the left occipital area of his head. Eye contact is minimal but appropriate. Speech is of normal rate volume and tone. Thoughts are organized, goal directed, focused on his head complaints. Recent and remote memory are intact per conversation. Intelligence is estimated to be average. Insight and judgment are improved over admission. Laboratory 09/25/16 11:58 Red Blood Count 5.96, Mean Corpuscular Volume 84.7, Mean Corpuscular Hemoglobin 31.4, Mean Corpuscular Hemoglobin Concent 37.0, Mean Platelet Volume 9.7 09/25/16 11:58 Test 09/25/16 11:20 09/25/16 11:58 09/28/16 07:25 Urine Color YELLOW Urine Appearance CLEAR (CLEAR) Urine pH 5.0 (4.5-7.5) Urine Specific [place] 1.000 (1.000-1.030) Urine Protein NEG (NEG) Urine Glucose (UA) NEG (NEG) Urine Ketones NEG (NEG) Urine Occult Blood NEG (NEG) Urine Nitrite NEG (NEG) Urine Bilirubin NEG (NEG) Urine Urobilinogen NEG (NEG) Urine Leukocyte Esterase NEG (NEG) Urine Synthetic Stimulants see note Urine Opiates Screen NEG (NEG) Urine Methadone, Qualitative NEG (NEG) Urine Barbiturates NEG (NEG) Urine Phencyclidine (PCP) Level NEG (NEG) Ur Amphetamine/Methamphetamine NEG (NEG) MDMA (Ecstasy) Screen NEG (NEG) Urine Benzodiazepines Screen NEG (NEG) Urine Cocaine Metabolite NEG (NEG) Cannabinoids Comment see note Urine Synthetic Cannabinoids NEGATIVE (Negative) Ur Synthetic Cannabinoids Confirm (()) Urine Marijuana (THC) NEG (NEG) White Blood Count 7.66 K/uL (4.8-10.8) Red Blood Count 5.96 M/uL (4.7-6.1) Hemoglobin 18.7 g/dL (14.0-18.0) Hematocrit 50.5 % (42-52) Mean Corpuscular Volume 84.7 fL (80-100) Mean Corpuscular Hemoglobin 31.4 pg (25-34) Mean Corpuscular Hemoglobin Concent 37.0 g/dl (32-36) Platelet Count 211 K/uL (130-400) Mean Platelet Volume 9.7 fL (7.4-10.4) RDW Standard Deviation 38.5 fL (36.4-46.3) RDW Coefficient of Variation 12.5 % (11.5-14.5) Neutrophils % (Manual) 71.0 % Lymphocytes % (Manual) 10.0 % Variant Lymphocytes % (manual) 12.0 % Monocytes % (Manual) 7.0 % Neutrophils # (Manual) 5.44 K/uL (1.4-6.5) Total Absolute Neutrophils 5.44 K/uL (1.4-6.5) Lymphocytes # (Manual) 0.77 K/uL (1.2-3.4) Absolute Variant Lymphocytes 0.92 K/uL Total Absolute Lymphocytes 1.69 K/uL (1.2-3.4) Monocytes # (Manual) 0.54 K/uL (0.11-0.59) Giant Platelets 1+ Anion Gap 9.0 mmol/L (3-11) Est Creatinine Clear Calc Drug Dose 111.0 ml/min Estimated GFR () 133.3 Estimated GFR (Non- 115.0 BUN/Creatinine Ratio 14.4 (10-20) Calcium Level 9.0 mg/dl (8.5-10.1) Total Bilirubin 0.6 mg/dl (0.2-1) Aspartate Amino Transf (AST/SGOT) 32 U/L (15-37) Alanine Aminotransferase (ALT/SGPT) 81 U/L (12-78) Alkaline Phosphatase 62 U/L (45-117) Total Protein 8.0 gm/dl (6.4-8.2) Albumin 4.5 gm/dl (3.4-5.0) Globulin 3.5 gm/dl (2.5-4.0) Albumin/Globulin Ratio 1.3 (0.9-2) Thyroid Stimulating Hormone (TSH) 1.680 uIu/ml (0.300-4.500) Salicylates Level < 1.7 mg/dl (2.8-20) Acetaminophen Level < 2 ug/ml (10-30) Ethyl Alcohol mg/dL < 3.0 mg/dl (0-3) Fasting Glucose 84 mg/dl (70-99) Triglycerides Level 158 mg/dl (0-150) Cholesterol Level 152 mg/dl (0-200) HDL Cholesterol 26 mg/dl LDL Cholesterol, Calculated 94 mg/dl VLDL Cholesterol, Calculated 32 mg/dl Cholesterol/HDL Ratio 5.8 Total Time Total Time Spent (min): Greater than 30 minutes Total Time Included: examination of the patient, discharge planning, medication reconciliation, communication with other providers Tobacco Cessation at Discharge FDA approved Prescription: non-smoker Problem Qualifiers (1) Psychotic disorder: Psychosis type: unspecified psychosis type Qualified Codes: F29 - Unspecified psychosis not due to a substance or known physiological condition
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
== END 2016-10-02 19:05 | disposition home or self-care (01) | DRG 885 ==
LOC: ENRESERVDT → ENRESERVTM → C.EDB 11:00 → C.MHU 20:12
PROVIDERS: ADMIT Psychiatry & Neurology Psychiatry; ATTEND Psychiatry & Neurology Psychiatry
DX: F29 Unspecified psychosis not due to a substance or known physiological condition (principal); F43.10 Post-traumatic stress disorder, unspecified; E78.1 Pure hyperglyceridemia; Z86.59 Personal history of other mental and behavioral disorders; Z91.19 Patient's noncompliance with other medical treatment and regimen

== ENCOUNTER 2022-10-07 21:00 | Inpatient (IN) ==
[2022-10-07 22:15] LABS: Acetaminophen < 3 ug/ml (10-30); Albumin Globulin Ratio 1.6 (0.9-2); Albumin Level 4.5 gm/dl (3.4-5.0); BUN Creatinine Ratio 15.2 (10-20); Bilirubin,Total 0.4 mg/dl (0.2-1.0); Calcium 9.4 mg/dl (8.5-10.1); Creatinine Clr Calc Pharmacy 147.7 ml/min; Est GFR (African American) 143.2 ml/min; Est GFR (Non-African American) 123.5 ml/min; Globulin 2.8 gm/dl (2.5-4.0); Potassium 3.7 mmol/L (3.5-5.1); Salicylate < 3.0 mg/dl (3.0-30); Total Protein 7.3 gm/dl (6.0-8.3)
[2022-10-07 22:24] LABS: Basophils # (auto) 0.03 K/uL (0-0.2); Basophils % (auto) 0.3 %; Eosinophils # (auto) 0.09 K/uL (0-0.50); Immature Granulocytes # (auto) 0.04 K/uL (0.01-0.20); Immature Granulocytes % (auto) 0.4 %; Lymphocytes # (auto) 2.53 K/uL (1.2-3.4); Lymphocytes % (auto) 26.7 %; Monocytes # (auto) 0.57 K/uL (0.11-0.59); Neutrophils % (auto) 65.6 %; Platelet Estimate Decreased (Normal)
[2022-10-07 22:28] LABS: Hematocrit (blood only) 49.1 % (42.0-52.0); Hemoglobin 17.5 g/dl (14.0-18.0); Mean Corpuscular Hemoglobin 30.2 pg (25.0-34.0); Mean Corpuscular Hgb Conc 35.6 g/dL (32.0-36.0); Mean Corpuscular Volume 84.8 fL (80.0-100.0); Mean Platelet Volume 9.8 fL (9.4-12.4); Platelet Count 74 K/uL (130-400); RDW Coefficient of Variation 12.7 % (11.5-14.5); RDW Standard Deviation 38.9 fL (36.4-46.3); Red Blood Count 5.79 M/uL (4.70-6.10); White Blood Count 9.46 K/ul (4.8-10.8)
--- NOTE | 2022-10-07 22:33 | Emergency Department Note ---
Impression & Plan Suicidal thoughts Still a patient ED Provider Note HPI: The patient is a 37-year-old male with history of PTSD, presents to the emergency department with a chief complaint of hallucinations and thoughts of self-harm. Patient states he was recently discharged from the [facility] psychiatric inpatient service, states that today he was beginning to hear voices that were "telling me what to do". Patient states that he does not have a plan to harm himself but he was having some vague thoughts of self-harm. He contacted the [place] crisis line and was advised to go to the emergency room to be assessed. On arrival here to the ED the patient is calm and cooperative, he is in no acute distress, he is hemodynamically stable otherwise on arrival. He states he feels that he does need inpatient therapy. ROS: - Per HPI *Outpatient medications and allergy history reviewed. *Pertinent external medical records reviewed. PE: General: Alert HEENT: Normocephalic, trachea midline Eyes: Extraocular eye movement is intact, no scleral erythema Pulmonary: Clear to auscultation bilaterally, no wheezing Cardio: Regular rate and rhythm GI: Abdomen is soft, nontender : No suprapubic tenderness MSK: No evidence of trauma or malformation of the extremities, no edema Skin: No evidence of rash Neuro: Alert, no focal deficits Psychiatric: Cooperative Medical Decision Making: Patient presented to the emergency department with suicidal thoughts, states he is also hearing voices that are trying to "control" him. On arrival here to the ED the patient is in no acute distress, he displays a lucid thought process, states he is having some vague thoughts of self-harm and would like admitted for inpatient psychiatric services. He contacted the [place] crisis line and was referred to the emergency room. Patient was medically cleared here in the ED, lab work does show evidence of what appears to be chronic thrombocytopenia, slightly worse than baseline at 74 however patient has not had any petechiae or symptoms of active bleeding recently. Urine drug screen is negative, alcohol level is negative. Bed search will be initiated under 201, patient was signed out to my colleague, Dr. Fuentes, change of shift pending ongoing bed search and final disposition. Diagnosis: 1. Suicidal thoughts 2. Auditory hallucinations Disposition: Still a patient Tyson Sprague DO Emergency Medicine Past Med/Surg History Medical History (Updated 10/08/22 @ 01:33 by Tyson Sprague DO) Hypertriglyceridemia Mood disorder Noncompliance Paranoia Psychosis Psychotic disorder Social History Smoking Status: Never smoker Preferred Language: Guinean Feels Safe at Home: Hesitant to Answer Gender Identity: Male Allergies Allergies Allergy/AdvReac Type Severity Reaction Status Date / Time bee venom protein (honey bee) Allergy Severe Anaphylaxis Verified 07/07/18 23:12 Penicillins Allergy Unknown STRONG Verified 07/07/18 23:12 FAMILY HX OF ALLERGY aripiprazole AdvReac Intermediate LETHARGIC Verified 07/07/18 23:12 citalopram AdvReac Intermediate RACING Verified 07/07/18 23:12 THOUGHTS risperidone AdvReac Intermediate LETHARGIC Verified 07/07/18 23:12 Home Meds Home Medications Medication Instructions Recorded Confirmed lurasidone 20 mg tablet (Latuda) 40 mg PO PM 07/29/19 07/24/21 Results & Data (ED) Vital Signs Vital Signs - 24 hr 10/07/22 21:02 Temperature 36.7 C Temperature Source Temporal Artery Scan Pulse Rate 100 H Respiratory Rate 18 Respiratory Effort / Characteristics Non-Labored Spontaneous Respiratory Depth Normal Blood Pressure 150/98 H Blood Pressure Mean 115 Blood Pressure Position Sitting Pulse Oximetry 94 Oxygen Delivery Method Room Air Sepsis Recent Fever Within 48 Hours No Sepsis New/Unexplained Change in Mental Status No Sepsis Action Taken by Nursing No Action Required Laboratory Data 10/07/22 21:35 10/07/22 21:35 Lab Results 10/07/22 10/07/22 10/07/22 Range/Units 21:35 21:35 21:35 WBC 9.46 (4.8-10.8) K/ul RBC 5.79 (4.70-6.10) M/uL Hgb 17.5 (14.0-18.0) g/dl Hct 49.1 (42.0-52.0) % MCV 84.8 (80.0-100.0) fL MCH 30.2 (25.0-34.0) pg MCHC 35.6 (32.0-36.0) g/dL RDW Std Deviation 38.9 (36.4-46.3) fL RDW Coeff of Maxim 12.7 (11.5-14.5) % Plt Count 74 L (130-400) K/uL MPV 9.8 (9.4-12.4) fL Immature Gran % (Auto) 0.4 % Neut % (Auto) 65.6 % Lymph % (Auto) 26.7 % Summit % (Auto) 6.0 % Eos % (Auto) 1.0 % Baso % (Auto) 0.3 % Neut # (Auto) 6.20 (1.40-6.50) K/uL Lymph # (Auto) 2.53 (1.2-3.4) K/uL Summit # (Auto) 0.57 (0.11-0.59) K/uL Eos # (Auto) 0.09 (0-0.50) K/uL Baso # (Auto) 0.03 (0-0.2) K/uL Immature Gran # (Auto) 0.04 (0.01-0.20) K/uL Platelet Estimate Decreased L (Normal) Sodium 139 (136-145) mmol/L Potassium 3.7 (3.5-5.1) mmol/L Chloride 107 (98-107) mmol/L Carbon Dioxide 25 (21-32) mmol/L Anion Gap 7 (3-11) BUN 10 (6-23) mg/dl Creatinine 0.66 (0.6-1.4) mg/dl Est Cr Clr Drug Dosing 147.7 ml/min Est GFR ( Amer) 143.2 ml/min Est GFR (Non-Af Amer) 123.5 ml/min BUN/Creatinine Ratio 15.2 (10-20) Glucose 102 H (70-99(Fasting)) mg/dl Calcium 9.4 (8.5-10.1) mg/dl Total Bilirubin 0.4 (0.2-1.0) mg/dl AST 35 (13-39) U/L ALT 74 H (7-52) U/L Alkaline Phosphatase 65 (34-104) U/L Total Protein 7.3 (6.0-8.3) gm/dl Albumin 4.5 (3.4-5.0) gm/dl Globulin 2.8 (2.5-4.0) gm/dl Albumin/Globulin Ratio 1.6 (0.9-2) TSH 3.097 (0.300-4.500) uIu/ml Urine Color Urine Appearance (Clear) Urine pH (4.5-7.5) Ur Specific [place] (1.000-1.030) Urine Protein (Negative) Urine Glucose (UA) (Negative) Urine Ketones (Negative) Urine Blood (Negative) Urine Nitrite (Negative) Urine Bilirubin (Negative) Urine Urobilinogen (Negative) Ur Leukocyte Esterase (Negative) Urine WBC (Auto) (0-5) /hpf Urine RBC (Auto) (0-4) /hpf U Hyaline Cast (Auto) (0-5) /lpf U Epithel Cells (Auto) (0-5) /lpf Urine Bacteria (Auto) (Negative) Urine Sperm (None Prsent) Salicylates (3.0-30) mg/dl Urine Opiates Screen (Neg) Ur Methadone, Qual (Neg) Acetaminophen (10-30) ug/ml Urine Barbiturates (Neg) Ur Phencyclidine (PCP) (Neg) U Amphetamin/Meth Scrn (Neg) MDMA (Ecstasy) Screen (Neg) U Benzodiazepines Scrn (Neg) Ur Cocaine Metabolite (Neg) U Marijuana (THC) Screen (Neg) Ethyl Alcohol mg/dL (<10.0) mg/dl SARS-CoV-2, RNA, NAAT (NEGATIVE) 10/07/22 10/07/22 10/07/22 Range/Units 21:35 21:35 21:35 WBC (4.8-10.8) K/ul RBC (4.70-6.10) M/uL Hgb (14.0-18.0) g/dl Hct (42.0-52.0) % MCV (80.0-100.0) fL MCH (25.0-34.0) pg MCHC (32.0-36.0) g/dL RDW Std Deviation (36.4-46.3) fL RDW Coeff of Maxim (11.5-14.5) % Plt Count (130-400) K/uL MPV (9.4-12.4) fL Immature Gran % (Auto) % Neut % (Auto) % Lymph % (Auto) % Summit % (Auto) % Eos % (Auto) % Baso % (Auto) % Neut # (Auto) (1.40-6.50) K/uL Lymph # (Auto) (1.2-3.4) K/uL [place] # (Auto) (0.11-0.59) K/uL Eos # (Auto) (0-0.50) K/uL Baso # (Auto) (0-0.2) K/uL Immature Gran # (Auto) (0.01-0.20) K/uL Platelet Estimate (Normal) Sodium (136-145) mmol/L Potassium (3.5-5.1) mmol/L Chloride (98-107) mmol/L Carbon Dioxide (21-32) mmol/L Anion Gap (3-11) BUN (6-23) mg/dl Creatinine (0.6-1.4) mg/dl Est Cr Clr Drug Dosing ml/min Est GFR ( Amer) ml/min Est GFR (Non-Af Amer) ml/min BUN/Creatinine Ratio (10-20) Glucose (70-99(Fasting)) mg/dl Calcium (8.5-10.1) mg/dl Total Bilirubin (0.2-1.0) mg/dl AST (13-39) U/L ALT (7-52) U/L Alkaline Phosphatase (34-104) U/L Total Protein (6.0-8.3) gm/dl Albumin (3.4-5.0) gm/dl Globulin (2.5-4.0) gm/dl Albumin/Globulin Ratio (0.9-2) TSH (0.300-4.500) uIu/ml Urine Color Urine Appearance (Clear) Urine pH (4.5-7.5) Ur Specific [place] (1.000-1.030) Urine Protein (Negative) Urine Glucose (UA) (Negative) Urine Ketones (Negative) Urine Blood (Negative) Urine Nitrite (Negative) Urine Bilirubin (Negative) Urine Urobilinogen (Negative) Ur Leukocyte Esterase (Negative) Urine WBC (Auto) (0-5) /hpf Urine RBC (Auto) (0-4) /hpf U Hyaline Cast (Auto) (0-5) /lpf U Epithel Cells (Auto) (0-5) /lpf Urine Bacteria (Auto) (Negative) Urine Sperm (None Prsent) Salicylates < 3.0 L (3.0-30) mg/dl Urine Opiates Screen (Neg) Ur Methadone, Qual (Neg) Acetaminophen < 3 L (10-30) ug/ml Urine Barbiturates (Neg) Ur Phencyclidine (PCP) (Neg) U Amphetamin/Meth Scrn (Neg) MDMA (Ecstasy) Screen (Neg) U Benzodiazepines Scrn (Neg) Ur Cocaine Metabolite (Neg) U Marijuana (THC) Screen (Neg) Ethyl Alcohol mg/dL < 10.0 (<10.0) mg/dl SARS-CoV-2, RNA, NAAT NEGATIVE (NEGATIVE) 10/07/22 10/07/22 Range/Units 22:50 22:50 WBC (4.8-10.8) K/ul RBC (4.70-6.10) M/uL Hgb (14.0-18.0) g/dl Hct (42.0-52.0) % MCV (80.0-100.0) fL MCH (25.0-34.0) pg MCHC (32.0-36.0) g/dL RDW Std Deviation (36.4-46.3) fL RDW Coeff of Maxim (11.5-14.5) % Plt Count (130-400) K/uL MPV (9.4-12.4) fL Immature Gran % (Auto) % Neut % (Auto) % Lymph % (Auto) % Summit % (Auto) % Eos % (Auto) % Baso % (Auto) % Neut # (Auto) (1.40-6.50) K/uL Lymph # (Auto) (1.2-3.4) K/uL [place] # (Auto) (0.11-0.59) K/uL Eos # (Auto) (0-0.50) K/uL Baso # (Auto) (0-0.2) K/uL Immature Gran # (Auto) (0.01-0.20) K/uL Platelet Estimate (Normal) Sodium (136-145) mmol/L Potassium (3.5-5.1) mmol/L Chloride (98-107) mmol/L Carbon Dioxide (21-32) mmol/L Anion Gap (3-11) BUN (6-23) mg/dl Creatinine (0.6-1.4) mg/dl Est Cr Clr Drug Dosing ml/min Est GFR ( Amer) ml/min Est GFR (Non-Af Amer) ml/min BUN/Creatinine Ratio (10-20) Glucose (70-99(Fasting)) mg/dl Calcium (8.5-10.1) mg/dl Total Bilirubin (0.2-1.0) mg/dl AST (13-39) U/L ALT (7-52) U/L Alkaline Phosphatase (34-104) U/L Total Protein (6.0-8.3) gm/dl Albumin (3.4-5.0) gm/dl Globulin (2.5-4.0) gm/dl Albumin/Globulin Ratio (0.9-2) TSH (0.300-4.500) uIu/ml Urine Color Yellow Urine Appearance Clear (Clear) Urine pH 7.0 (4.5-7.5) Ur Specific [place] 1.017 (1.000-1.030) Urine Protein Trace H (Negative) Urine Glucose (UA) Negative (Negative) Urine Ketones Negative (Negative) Urine Blood Negative (Negative) Urine Nitrite Negative (Negative) Urine Bilirubin Negative (Negative) Urine Urobilinogen Negative (Negative) Ur Leukocyte Esterase Negative (Negative) Urine WBC (Auto) 1-5 (0-5) /hpf Urine RBC (Auto) 0-4 (0-4) /hpf U Hyaline Cast (Auto) 0 (0-5) /lpf U Epithel Cells (Auto) 0-5 (0-5) /lpf Urine Bacteria (Auto) Negative (Negative) Urine Sperm Present A (None Prsent) Salicylates (3.0-30) mg/dl Urine Opiates Screen Neg (Neg) Ur Methadone, Qual Neg (Neg) Acetaminophen (10-30) ug/ml Urine Barbiturates Neg (Neg) Ur Phencyclidine (PCP) Neg (Neg) U Amphetamin/Meth Scrn Neg (Neg) MDMA (Ecstasy) Screen Neg (Neg) U Benzodiazepines Scrn Neg (Neg) Ur Cocaine Metabolite Neg (Neg) U Marijuana (THC) Screen Neg (Neg) Ethyl Alcohol mg/dL (<10.0) mg/dl SARS-CoV-2, RNA, NAAT (NEGATIVE) Discharge Plan Visit Data Chief Complaint: Mental Health Evaluation Stated Complaint: MENTAL HEALTH ISSSUES ED Provider: Tyson Sprague Discharge Problem: Suicidal thoughts Patient Disposition: Still a Patient Forms Stand Alone Forms: [facility], Suicide Prevention Resources Prescriptions Prescriptions: No Action Latuda 20 mg Tablet 40 mg PO PM Referrals Ref[facility]: [facility] [Primary Care Provider] -
[2022-10-07 23:36] LABS: Appearance Urine Clear (Clear); Bacteria Urine Automated Negative (Negative); Bilirubin Urine Negative (Negative); Blood Urine Negative (Negative); Color Urine Yellow; Epithelial Cell Urine Auto 0-5 /lpf (0-5); Glucose Urine UA Negative (Negative); Ketones Urine Negative (Negative); Leukocyte Esterase Urine Negative (Negative); Nitrite Urine Negative (Negative); Protein Urine Trace (Negative); RBC Urine Automated 0-4 /hpf (0-4); Specific Gravity Urine 1.017 (1.000-1.030); Urobilinogen Urine Negative (Negative)
[2022-10-07 23:49] LABS: Sperm Urine Present (None Prsent)
[2022-10-07 23:52] LABS: Cast Urine Automated 0 /lpf (0-5)
[2022-10-08 00:24] LABS: Amphetamines+Metham, Urine Neg (Neg); Barbiturates, Urine Neg (Neg); Benzodiazepine, Urine Neg (Neg); Cocaine, Urine Neg (Neg); MDMA (Ecstacy), Urine Neg (Neg); Methadone, Urine Neg (Neg); Opiate, Urine Neg (Neg); Phencyclidine, Urine Neg (Neg)
[2022-10-08] MEDS ORDERED: hydrOXYzine HCl 25 MG TAB PO PRN ×2 (01:49)
[2022-10-08] MEDS ORDERED: MAGNESIUM HYDROXIDE SUSP 30 ML UDC PO PRN (01:49)
[2022-10-08] MEDS ORDERED: SODIUM CHLORIDE 0.65% NA SOLN 45 ML (OCEAN) PRN (01:49)
[2022-10-08] MEDS ORDERED: ALUMINUM/MAGNESIUM SUSP 30 ML UDC PO PRN (01:49)
[2022-10-08] MEDS ORDERED: BISMUTH SUBSALICYLATE LIQD 236 ML PO PRN (01:49)
[2022-10-08] MEDS ORDERED: ACETAMINOPHEN 325 MG TAB PO PRN (01:49)
--- NOTE | 2022-10-08 01:52 | Emergency Department Note ---
ED Visit Note I received this patient in signout at the change of shift from Dr. Sprague pending mental health bed search. 3 S. evaluated the patient and has accepted him for inpatient care. Please refer to previous documentation for further detail of the history, physical and visit. .
[2022-10-08] MEDS ORDERED: traZODone HCL 100 MG TAB PO ONE (03:10)
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
[2022-10-08] MEDS ORDERED: SERTRALINE HCL 50 MG TABLET PO SCH (11:30)
[2022-10-08] MEDS ORDERED: PALIPERIDONE PALMITATE 156 MG/ML SYR IM SCH (18:30)
[2022-10-08] MEDS ORDERED: traZODone HCL 50 MG TAB PO SCH (22:00)
[2022-10-08] MEDS ORDERED: PRAZOSIN HCL 1 MG CAP PO SCH (22:00)
[2022-10-08] MEDS ORDERED: LORazepam 0.5 MG TAB PO SCH (22:00)
[2022-10-09] MEDS ORDERED: SERTRALINE HCL 100 MG TABLET PO SCH (09:00)
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
== END 2022-10-09 16:35 | DRG 885 ==
LOC: ED 21:00 → SUATTDRO 10-08 01:49 → 3S 10-08 01:49